=== PATIENT | female | born 1975 | race Caucasian/White ===

== ENCOUNTER → 2016-07-24 | Day surgery (SDC) | payer OTHER ==
[~2016-07-24] MED LIST: AMITRIPTYLINE100 MG PO; BENADRYL25 M1 PO; BUPROPION XL150 MG PO; BUTALB-APAP-CA1 EACH PO; ETODOLAC500 MG PO; FLUOXETINE PO; HYDROCHLOROTHIA25 MG PO; LIPITOR20 MG PO; LISINOPRIL10 MG PO; LISINOPRIL20 MG PO; LORTAB 10-3251 EACH PO; REQUIP0.5 MG PO; TIZANIDINE HCL4 M1 PO; VALACYCLOVIR1000 MG PO; VITAMIN D250000 UNIT PO; ZANTAC150 M1 PO; ZYRTEC10 M2 PO
--- NOTE | ~2016-07-24 | EKG ---
PATIENT: JEFFERSON VELASQUEZ UNIT #: [id number] Ventricular Rate: 68 BPM Atrial Rate: 68 BPM P-R Interval: 136 ms QRS Duration: 80 ms Q-T Interval: 430 ms QTC Calculation(Bezet): 457 ms P Lulu: 60 degrees Calculated R Lulu: 42 degrees Calculated T Lulu: 48 degrees Diagnosis Line: Normal sinus rhythm Diagnosis Line: Normal ECG Diagnosis Line: No previous ECGs available Diagnosis Line: Confirmed by BANDAR DAVIS MD ([id number]) on 07/25/2016 Diagnosis Line: 10:01:56 AM INTERPRETING MD: RYAN PRESSLEY
--- NOTE | ~2016-07-24 | CR181 ---
[facility] A Service of [facility] & [facility] RADIOLOGY TEXT RESULTS PATIENT: JEFFERSON VELASQUEZ LOCATION: [facility] : 73 UNIT #: [id number] AGE: [address]: Pepito Clinton MD SEX: F ORDER DR: [id number] [facility] [address] [place], [place] [address] [id number] O MR#: [id number] Acc #: [id number] NAME: JEFFERSON VELASQUEZ : 1975 SEX: F STUDY DATE/TIME: 07/24/2016 16:16 UNIT: [facility] ROOM: STUDY DESCRIPTION: CR Lumbar Spine 2 or 3 Views Attending Physician: Pepito Clinton M.D. Referring Physician: Pepito Clinton M.D. Ordering Physician: Pepito Clinton M.D. Primary Care Physician: Kenya Marcos A.P.R.N. MEDICAL IMAGING REPORT This report is preliminary unless electronic signature is present EXAM Intraoperative spot views of the spine 07/24/2016 HISTORY Pain pump insertion. FINDINGS 2 views obtained during procedure performed by Dr. Clinton. Dictated by... Jr Crockett M.D. THIS IS AN ELECTRONICALLY VERIFIED REPORT Jr Crockett M.D. at 07/25/2016 3:57 PM TEV/mjs TD: 07/25/2016 07:18 JOB #: [id number] MEDICAL IMAGING REPORT Page 1 of 1 COPY
--- NOTE | ~2016-07-24 | OR ---
Unit #: [id number] #: [id number] Patient: RADHA VELASQUEZ [id number] [address] [address] [id number] O MR#: [id number] NAME: RADHA VELASQUEZ ROOM: Date of Procedure: 07/24/2016 Admission Date: 07/24/2016 Surgeon: Pepito Clinton M.D. : 1975 Attending Physician: Pepito Clinton M.D. Referring Physician: Pepito Clinton M.D. Primary Care Physician: Kenya Marcos A.P.R.N. OPERATIVE REPORT PREOPERATIVE DIAGNOSES 1. Chronic arachnoiditis. 2. Post-laminectomy pain syndrome. 3. Chronic pain syndrome. POSTOPERATIVE DIAGNOSES 1. Chronic arachnoiditis. 2. Post-laminectomy pain syndrome. 3. Chronic pain syndrome. PROCEDURES PERFORMED 1. Implantation of SynchroMed II Medtronic intrathecal pump. 2. Implantation of Ascenda catheter. 3. Physician filling of pump. 4. Fluoroscopy. SURGICAL INDICATION AND RATIONALE Ms. 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 This patient has struggled for a long period of time and has tried various conservative treatment options including nonsteroidal anti-inflammatory medications, muscle relaxants, oral pain medication, epidural injections, radiofrequency ablation. The patient has also undergone a successful epidural pain pump trial using hydromorphone, which she had about 95% improvement of pain with increased activities of daily living. The patient was very keen to move forward to have this implantation done. The patient has undergone a psychological evaluation along with a cardiac clearance, both of which did not show any contraindications to move forward. The patient also had undergone a detail consent process, where the patient was told about the risks, benefits, and alternatives available and also details of the consent decree was discussed with the patient. The patient also had a detailed discussion with Ximena Roe, the [employer] visitor services representative who also discussed the issues regarding the consent decree and all the patient's questions were answered to her satisfaction. I used a teach-back method to make sure that the patient understood my explanations and all questions were answered. The patient is here to have an intrathecal pain pump implanted. DESCRIPTION OF PROCEDURE After obtaining full informed consent and after discussion with the patient of possible complications including infection, bleeding, Unit #: [id number] #: [id number] Patient: RADHA VELASQUEZ paralysis, mild headaches, , and other perioperative complications were discussed with the patient and consent was obtained in front of the preoperative nurse. The patient was then taken back to the operating room, where time-out was done in accordance to the joint commission guidelines where the patient's identity, procedure, and site of procedure were verified. The patient was then positioned in the prone position after general anesthesia was induced. The patient received antibiotic coverage 30 minutes before entering the operating room. The patient was then prepped and draped in the usual fashion. All of this was done after general anesthesia was induced. Then, I measured an area 5 cm in length in the low back and I made a linear incision after the skin was anesthetized to create a pocket to house the intrathecal pump. This was done with the help of the Bovie and once this was done, this pocket was copiously irrigated with irrigant. Then under fluoroscopic view, I was able to identify the L2-L3 interspace and after the skin target sites were anesthetized, I made an incision in the midline with the help of the Bovie created a space in the underlying tissue. Once this was done, I placed a 17-gauge Tuohy needle to access the intrathecal space and I achieved this at first pass with clear flow of CSF. Once this was done, I navigated an Ascenda catheter through the Tuohy needle to reach the upper border of T7 under live fluoroscopic view. This was done also in lateral view to ascertain the position of the catheter. After this was done, the stylet along with the Tuohy needle were removed and I used a special anchoring device to anchor the catheter to the interspinous ligament. I further reinforced this catheter using 3-0 Prolene sutures. I then tunneled this catheter into the pocket and then using a special adapter, I connected this catheter to the SynchroMed Medtronic II pump. Once this was done, I aspirated the sideport using a 24-gauge needle to aspirate CSF, which was seen clearly. After this was done, the pump was anchored to the underlying tissue using 3-0 Prolene sutures. I then lined the 2 incisions with vancomycin powder and the incisions were closed in 3 layers using interrupted 3-0 Vicryl sutures. I then placed Steri-Strips around the incision and a Telfa-Tegaderm dressing was placed. The patient was then brought back to the recovery room for neurological monitoring. PLAN OF CARE The patient had an uneventful recovery and was discharged home neurologically intact with plans return to my office in 7 days to have her christo removed. The patient's pump was started at 0.29 mg of hydromorphone a day and she is able to use a PTM dose which is the patient teacher home therapy at 0.02 mg and she is able to activate this twice a day. The [employer] catheter serial #[id number], the [employer] SynchroMed II pump serial #[id number]. The patient was discharged home neurologically intact. Dictated by.Eliecer Lynn/elissa TD: 07/25/2016 00:16 JOB #: [id number] Unit #: [id number] #: [id number] Patient: RADHA VELASQUEZ OPERATIVE REPORT Page 1 of 1 X Pepito Clinton MD PROCEDURE OPERATIVE NOTE
[2016-07-24 14:54] LABS: BUN/CREATININE RATIO 15.55; CREATININE SERUM 0.9 mg/dL (0.6-1.4); GLOM FILT RATE Estimated 78.9 mL/min (>60); POTASSIUM 3.8 mmol/L (3.5-5.1)
== END | disposition home or self-care (01) ==
LOC: CSUR 13:00
PROVIDERS: Specialist
DX: M96.1 Postlaminectomy syndrome, not elsewhere classified (principal); G89.4 Chronic pain syndrome; G03.1 Chronic meningitis; M54.5 Low back pain; M51.36 Other intervertebral disc degeneration, lumbar region; I10 Essential (primary) hypertension; K21.9 Gastro-esophageal reflux disease without esophagitis; M79.7 Fibromyalgia; M19.90 Unspecified osteoarthritis, unspecified site; F32.9 Major depressive disorder, single episode, unspecified; F17.210 Nicotine dependence, cigarettes, uncomplicated; Z88.5 Allergy status to narcotic agent; Z88.8 Allergy status to other drugs, medicaments and biological substances; Z91.048 Other nonmedicinal substance allergy status; Z79.899 Other long term (current) drug therapy; Z90.710 Acquired absence of both cervix and uterus; Z98.890 Other specified postprocedural states; Y83.8 Other surgical procedures as the cause of abnormal reaction of the patient, or of later complication, without mention of misadventure at the time of the procedure
CPT/HCPCS: 72100; 76000; 80048; 93005; C1772; J0330; J0690; J2250; J2405; J3010; J3370